=== PATIENT | male | born 1990 | race Asian ===

== ENCOUNTER → 2016-12-02 | Outpatient (CLI) | payer OTHER ==
[~2016-12-02] MED LIST: ABILIFY5 MG; ABILIFY5 MG PO; ANTIBIOTIC FOR ACNE; BUPROPION HCL150 M2 PO; CETIRIZINE; COMBIVENT INH14.7 GM IH; CONCERTA36 MG PO; EFFEXOR100 MG; FETZIMA120 PO; FLEXERIL 1010 MG/TAB PO; LAMICTAL200 MG PO; LORTAB 5/500 501 TAB PO; NAPROSYN500 MG PO; WELLBUTRIN100 MG PO
== END ==
LOC: BHSO 14:07
DX: F41.1 Generalized anxiety disorder (principal)

== ENCOUNTER → 2017-02-01 | Outpatient (CLI) | payer OTHER | LOC: BHSO 15:01 | DX: F41.1 Generalized anxiety disorder (principal) ==

== ENCOUNTER → 2017-04-21 | Outpatient (CLI) | payer OTHER | LOC: BHSO 14:25 | DX: F41.1 Generalized anxiety disorder (principal) ==

== ENCOUNTER → 2017-10-04 | Outpatient (CLI) | payer OTHER | LOC: BHSO 08:31 | DX: F90.0 Attention-deficit hyperactivity disorder, predominantly inattentive type (principal) | CPT/HCPCS: G0463 ==

== ENCOUNTER 2017-11-25 18:16 | Emergency (ER) | payer OTHER ==
[~2017-11-25] VITALS: Ht 167.6 cm; Wt 84.5 kg
[2017-11-25 18:19] VITALS: BP 116/75; TEMP 98.4
[2017-11-25] MEDS ORDERED: BRINTELLIX20 (18:31)
[2017-11-25] MEDS ORDERED: PREDNISONE20 MG PO ×3 (19:39→20:05)
[2017-11-25] MEDS ORDERED: FLEXERIL 1010 MG/TAB PO ×3 (19:39→20:05)
[2017-11-25 20:25] VITALS: PULSE 79
== END 2017-11-25 20:20 | disposition home or self-care (01) ==
LOC: COL.ER 18:16
DX: M46.1 Sacroiliitis, not elsewhere classified (principal)
CPT/HCPCS: J2360

== ENCOUNTER → 2018-01-04 | Outpatient (CLI) | payer OTHER ==
[~2018-01-04] MED LIST changes: +BRINTELLIX20; +PREDNISONE20 MG PO
== END ==
LOC: BHSO 13:42
DX: F33.42 Major depressive disorder, recurrent, in full remission (principal)
CPT/HCPCS: G0463

== ENCOUNTER → 2018-05-04 | Outpatient (CLI) | payer OTHER | LOC: BHSO 14:25 | DX: F33.42 Major depressive disorder, recurrent, in full remission (principal) | CPT/HCPCS: G0463 ==

== ENCOUNTER → 2018-07-06 | Outpatient (CLI) | payer OTHER | LOC: BHSO 13:58 | DX: F90.0 Attention-deficit hyperactivity disorder, predominantly inattentive type (principal) | CPT/HCPCS: G0463 ==

== ENCOUNTER → 2018-08-14 | Outpatient (CLI) | payer OTHER | LOC: BHSO 14:18 | DX: F90.0 Attention-deficit hyperactivity disorder, predominantly inattentive type (principal) | CPT/HCPCS: G0463 ==

== ENCOUNTER → 2018-10-01 | Outpatient (CLI) | payer OTHER | LOC: BHSO 08:23 | DX: F41.1 Generalized anxiety disorder (principal) | CPT/HCPCS: G0463 ==

== ENCOUNTER → 2018-10-29 | Outpatient (CLI) | payer OTHER | LOC: BHSO 08:57 | DX: F90.0 Attention-deficit hyperactivity disorder, predominantly inattentive type (principal) | CPT/HCPCS: G0463 ==

== ENCOUNTER → 2018-12-04 | Outpatient (CLI) | payer OTHER | LOC: BHSO 08:40 | DX: F90.0 Attention-deficit hyperactivity disorder, predominantly inattentive type (principal) | CPT/HCPCS: G0463 ==

== ENCOUNTER → 2019-02-04 | Outpatient (CLI) | payer OTHER | LOC: BHSO 08:22 | DX: F90.0 Attention-deficit hyperactivity disorder, predominantly inattentive type (principal) | CPT/HCPCS: G0463 ==

== ENCOUNTER → 2019-06-04 | Outpatient (CLI) | payer OTHER | LOC: BHSO 13:27 | DX: F90.0 Attention-deficit hyperactivity disorder, predominantly inattentive type (principal) | CPT/HCPCS: G0463 ==

== ENCOUNTER → 2019-07-30 | Outpatient (CLI) | payer OTHER | LOC: BHSO 10:52 | DX: F41.1 Generalized anxiety disorder (principal) | CPT/HCPCS: G0463 ==

== ENCOUNTER → 2020-01-06 | Outpatient (CLI) | payer OTHER | LOC: BHSO 11-21 14:44 | DX: F90.0 Attention-deficit hyperactivity disorder, predominantly inattentive type (principal) | CPT/HCPCS: G0463 ==

== ENCOUNTER → 2020-03-05 | Outpatient (CLI) | payer OTHER | LOC: BHSO 09:57 | DX: F41.1 Generalized anxiety disorder (principal) | CPT/HCPCS: G0463 ==

== ENCOUNTER → 2020-03-31 | Outpatient (CLI) | payer OTHER | LOC: BHSO 10:25 | DX: F41.1 Generalized anxiety disorder (principal) | CPT/HCPCS: G0463 ==